=== PATIENT | female | born 1950 | race Caucasian/White ===

== ENCOUNTER 2023-04-30 15:22 | Emergency (ER) | payer MEDICARE ==
[2023-04-30] MEDS ORDERED: valACYclovir HCL 1,000 MG TABLET PO STA (15:37)
[2023-04-30] MEDS ORDERED: LIDOCAINE 4% CREAM 5 GM TUBE TOPICAL ONE (15:41)
--- NOTE | 2023-04-30 16:04 | ED ---
Skin/Abscess/FB HPI - General Chief complaint: Skin/Abscess/Foreign Body Stated complaint: Shingles Time Seen by Provider: 04/30/23 15:33 Source: patient, RN notes reviewed Mode of arrival: ambulatory Limitations: no limitations - History of Present Illness Initial comments: This is a 72-year-old female who presents to the emergency department for a rash on the right side of her neck. 5 days ago, she started to develop pain to the right side of her neck and initially thought that she just slept on it wrong. However the pain persisted and last night she started to develop a rash. States that she is concerned that this may be shingles. She did not receive the shingles vaccine. She did have chickenpox as a child. She takes Celebrex for her arthritis pain and has been taking Tylenol for this pain, however this has not been very effective. MD complaint: rash - Related Data Previous Rx's Medication Instructions Recorded HYDROcodone/APAP 5-325MG [[place] 1 tab PO Q6HR PRN 3 Days #12 tab 04/30/23 5-325] Lidocaine 5% Patch [Lidoderm 5% 1 patch TOPICAL DAILY PRN #30 patch 04/30/23 Patch] valACYclovir HCL [Valtrex] 1,000 mg PO TID 7 Days #21 tablet 04/30/23 Allergies Allergy/AdvReac Type Severity Reaction Status Date / Time diazepam [From Valium] Allergy Hallucinati Verified 04/30/23 15:30 ons Penicillins Allergy Rash/Hives Verified 04/30/23 15:30 Sulfa (Sulfonamide Allergy Anaphylaxis Verified 04/30/23 15:30 Antibiotics) Review of Systems ROS Statement: Those systems with pertinent positive or pertinent negative responses have been documented in the HPI. ROS Other: All systems not noted in ROS Statement are negative. Past Medical History Past Medical History: Diabetes Mellitus, Osteoarthritis (OA) Past Surgical History: Adenoidectomy, Appendectomy, Cholecystectomy, Hysterectomy, Joint Replacement, Orthopedic Surgery, Tonsillectomy Additional Past Surgical History / Comment(s): right nephrectomy Past Psychological History: No Psychological Hx Reported General Exam Limitations: no limitations General appearance: alert, in no apparent distress Head exam: Present: atraumatic, normocephalic, normal inspection Eye exam: Present: normal appearance, PERRL, EOMI. Absent: scleral icterus, conjunctival injection, periorbital swelling ENT exam: Present: other (Maculopapular rash following the C3 dermatomal distribution on the right) Respiratory exam: Present: normal lung sounds bilaterally. Absent: respiratory distress, wheezes, rales, rhonchi, stridor Cardiovascular Exam: Present: regular rate, normal rhythm, normal heart sounds. Absent: systolic murmur, diastolic murmur, rubs, gallop, clicks Neurological exam: Present: alert, oriented X3, CN II-XII intact Psychiatric exam: Present: normal affect, normal mood Course Vital Signs 04/30/23 15:25 Temperature 97 F L Pulse Rate 77 Respiratory 20 Rate Blood Pressure 165/84 O2 Sat by Pulse 96 Oximetry Medical Decision Making - Medical Decision Making This is a 72-year-old female who presents to the emergency department for a rash. Was pt. sent in by a medical professional or institution? @ -No Did you speak to anyone other than the patient for history? @ -No Did you review nursing and triage notes? @ -Yes, and I agree, it is accurate with regards to the patient's symptoms. Were old charts reviewed? @ -No Differential Diagnosis? @ -Differential Rash: Roseola, measles, Lyme disease, erythema multiforme, cellulitis, toxic shock syndrome, Rico Nilson syndrome, Kawasaki disease, [place] spotted fever, contact dermatitis, allergic dermatitis, measles, mumps, rubella, varicella, meningococcal disease, drug reaction, coxsackievirus, This is not meant to be an all-inclusive list. EKG interpreted by me (3pts min.)? @ -Not obtained X-rays interpreted by me (1pt min.)? @ -Not obtained CT interpreted by me (1pt min.)? @ -Not obtained U/S interpreted by me (1pt. min.)? @ -Not obtained What testing was considered but not performed? (CT, X-rays, U/S, labs)? Why? @ -None What meds were considered but not given? Why? @ -None Did you discuss the management of the patient with other professionals? @ -No Did you reconcile home meds? @ -No Was smoking cessation discussed for >3mins.? @ -No Was critical care preformed (if so, how long)? @ -No Were there social determinants of health that impacted care today? How? (Homelessness, low income, unemployed, alcoholism, drug addiction, transportation, low edu. Level, literacy, decrease access to med. care, fci, rehab)? @ -No Was there de-escalation of care discussed even if they declined? (Discuss DNR or withdrawal of care, Hospice)? @ -No What co-morbidities impacted this encounter? (DM, HTN, Smoking, COPD, CAD, Cancer, CVA, Hep., AIDS, mental health diagnosis, sleep apnea, morbid obesity)? @ -DM Was patient admitted / discharged? @ -Discharged. Physical examination consistent with Shinlges along the C3 dermatomal distribution. Initial dose of Valtrex administered in the emergency department. Prescription for 7 day course of Valtrex provided with dosing instructions reviewed. Rx for lidocaine patches provided with dosing instructions reviewed as well. She was also given a prescription for a short course of [place] to take as needed for severe pain. She will otherwise continue to take her Celebrex and [id number] Tylenol. She was given strict return parameters and discharged home in stable condition. Undiagnosed new problem with uncertain prognosis? @ -None Drug Therapy requiring intensive monitoring for toxicity (Heparin, Nitro, Insulin, Cardizem)? @ -None Were any procedures done? @ -None Diagnosis/symptom? @ -Shingles Acute, or Chronic, or Acute on Chronic? @ -Acute Uncomplicated (without systemic symptoms) or Complicated (systemic symptoms)? @ -Uncomplicated Side effects of treatment? @ -None Exacerbation, Progression, or Severe Exacerbation] @ -Not applicable Poses a threat to life or bodily function? @ -No Return precautions reviewed in depth, the patient is instructed to return to the emergency department with any new, worsening, or concerning symptoms. Patient verbalized understanding. This case was discussed in detail with the attending ED physician, Dr. Valencia. Presentation, findings, and treatment plan discussed in detail as well. Disposition Clinical Impression: Shingles Disposition: HOME SELF-CARE Instructions (If sedation given, give patient instructions): Pranav (ED) Additional Instructions: Return to the emergency department with any new, worsening, or concerning symptoms. Take the Valtrex as prescribed for 7 days. Continue to take your Celebrex along with Tylenol for pain relief. You can apply 1-3 Lidocaine patches at a time or use the lidocaine cream. Take the [place] sparingly when your pain is the most severe. Follow up with your primary care provider in 1-2 days. Prescriptions: Lidocaine 5% Patch [Lidoderm 5% Patch] 1 patch TOPICAL DAILY PRN #30 patch PRN Reason: Pain HYDROcodone/APAP 5-325MG [[place] 5-325] 1 tab PO Q6HR PRN 3 Days #12 tab PRN Reason: Pain valACYclovir HCL [Valtrex] 1,000 mg PO TID 7 Days #21 tablet Is patient prescribed a controlled substance at d/c from ED?: Yes When asked, does pt state using other controlled substances?: No If prescribed controlled substance>3 days was MAPS reviewed?: Prescribed <3 Days Referrals: None,Stated [Primary Care Provider] - 1-2 days Time of Disposition: 16:09
[2023-04-30 16:52] VITALS: BP 160/60; PULSE 86; RESP 18; TEMP 98.8
== END 2023-04-30 16:31 | disposition home or self-care (01) ==
LOC: EC 15:22
DX: B02.9 Zoster without complications (principal); E11.9 Type 2 diabetes mellitus without complications; Z88.0 Allergy status to penicillin; Z88.2 Allergy status to sulfonamides; Z88.8 Allergy status to other drugs, medicaments and biological substances
CPT/HCPCS: 99282